=== PATIENT | female | born 1985 | race African-American/Black ===

== ENCOUNTER 2016-08-25 12:56 | Emergency (ER) | payer MEDICAID ==
[~2016-08-25 12:56] MED LIST: IBUPROFEN800 M1 PO; MACROBID 100 M100 M1 PO; NITROFURANTOIN100 MG PO; NO HOME MEDICATION XX; PRENATAL VITAM1 EAC8 PO; ZOFRAN ODT4 MG PO
[2016-08-25 14:28] LABS: BASO % 0.2 % (0-2); EOS % 0.9 % (0-7); EOSINOPHIL ABSOLUTE COUNT 0.1 tho/cmm (0.0-0.7); HCT-HEMATOCRIT 34.2 % (34.0-49.0); HGB-HEMOGLOBIN 10.4 gm/dl (12.0-15.5); IMMATURE GRANULOCYTES ABSOLUTE 0.02 tho/cmm (0-0.03); IMMATURE GRANULOCYTES PERCENT 0.2 % (0-0.3); LYMPH % 15.2 % (20-45); LYMPH ABSOLUTE COUNT 1.8 tho/cmm (0.8-4.5); MCH (MEAN CORPUSCULAR HGB) 21.3 pg (28.0-32.0); MCHC MEAN CORPUSCULAR HGB CONC 30.4 % (32.0-36.0); MCV (MEAN CELL VOLUME) 70.1 fl (82.0-96.0); MONO % 4.3 % (0-12); MONOCYTE ABSOLUTE COUNT 0.5 tho/cmm (0.0-1.2); NEUTROPHIL ABSOLUTE COUNT 9.3 tho/cmm (1.6-8.0); NEUTROPHIL-AUTOMATED 9.3 tho/cmm (1.6-8.0); NEUTROPHILS % 79.2 % (40-80); PLATELET COUNT 181 tho/cmm (150-450); RED BLOOD COUNT 4.88 mil/cmm (4.00-5.20); RED CELL DISTRIBUTION WIDTH 22.5 % (12.4-16.4); WHITE BLOOD COUNT 11.7 tho/cmm (4.0-10.0)
[2016-08-25 14:38] LABS: URINE APPEARANCE HAZY; URINE BILIRUBIN NEGATIVE (NEG); URINE BLOOD SMALL (NEG); URINE COLOR PALE YELLOW; URINE GLUCOSE (UA) NEGATIVE (NEG); URINE KETONE MODERATE (NEG); URINE LEUKOCYTE ESTERASE POSITIVE (NEG); URINE NITRITE NEGATIVE (NEG); URINE PROTEIN NEGATIVE (NEG); URINE SPECIFIC GRAVITY 1.015 (1.003-1.030)
[2016-08-25 14:56] LABS: URINE BACTERIA 1+; URINE EPITHELIAL CELLS 15-20 /[HPF] (0-10)
[2016-08-25] MEDS ORDERED: PRENATAL TABLE1 EAC3 PO (15:19)
[2016-08-25] MEDS ORDERED: MACROBID 100 M100 M1 PO (15:19)
[2017-02-10] MEDS ORDERED: NO HOME MEDICATION (02:16)
[2017-02-11] MEDS ORDERED: IBUPROFEN800 M1 PO (10:55)
[2017-02-11] MEDS ORDERED: PRENATAL-U CAPS1 CAP PO (10:56)
[2017-02-11] MEDS ORDERED: COLACE100 M1 PO (10:56)
[2017-02-11] MEDS ORDERED: NORCO 5-325 TA1 EACH PO (10:57)
== END 2016-08-25 15:32 ==
LOC: EDMED 12:56
PROVIDERS: Emergency Medicine
DX: O26.892 Other specified pregnancy related conditions, second trimester (principal); R10.2 Pelvic and perineal pain; Z3A.15 15 weeks gestation of pregnancy

== ENCOUNTER 2016-12-06 18:19 | Observation (INO) | payer MEDICAID ==
[~2016-12-06 18:19] MED LIST changes: +PRENATAL TABLE1 EAC3 PO
[2016-12-06 20:03] LABS: URINE BILIRUBIN NEGATIVE (NEG); URINE BLOOD MODERATE (NEG); URINE GLUCOSE (UA) NEGATIVE (NEG); URINE KETONE NEGATIVE (NEG); URINE LEUKOCYTE ESTERASE POSITIVE (NEG); URINE NITRITE NEGATIVE (NEG); URINE PROTEIN MODERATE (NEG)
[2016-12-06 20:04] LABS: URINE APPEARANCE CLOUDY; URINE COLOR YELLOW
[2016-12-06 20:14] LABS: URINE BACTERIA 2+; URINE EPITHELIAL CELLS 30-50 /[HPF] (0-10)
[2016-12-06 23:12] LABS: BASO % 0.2 % (0-2); EOS % 0.8 % (0-7); EOSINOPHIL ABSOLUTE COUNT 0.1 tho/cmm (0.0-0.7); HCT-HEMATOCRIT 36.6 % (34.0-49.0); IMMATURE GRANULOCYTES ABSOLUTE 0.04 tho/cmm (0-0.03); IMMATURE GRANULOCYTES PERCENT 0.3 % (0-0.3); LYMPH % 18.5 % (20-45); LYMPH ABSOLUTE COUNT 2.4 tho/cmm (0.8-4.5); MCH (MEAN CORPUSCULAR HGB) 25.7 pg (28.0-32.0); MCHC MEAN CORPUSCULAR HGB CONC 32.8 % (32.0-36.0); MCV (MEAN CELL VOLUME) 78.4 fl (82.0-96.0); MEAN PLATELET VOLUME 11.7 cmc (9.4-12.4); MONO % 7.3 % (0-12); NEUTROPHIL ABSOLUTE COUNT 9.7 tho/cmm (1.6-8.0); NEUTROPHIL-AUTOMATED 9.7 tho/cmm (1.6-8.0); NEUTROPHILS % 72.9 % (40-80); PLATELET COUNT 140 tho/cmm (150-450); RED BLOOD COUNT 4.67 mil/cmm (4.00-5.20); RED CELL DISTRIBUTION WIDTH 16.7 % (12.4-16.4); WHITE BLOOD COUNT 13.2 tho/cmm (4.0-10.0)
[2016-12-06 23:23] LABS: ALB/GLOB RATIO 0.3 (0.8-2.0); ALBUMIN 1.7 g/dl (3.5-5.0); ALKALINE PHOSPHATASE 92 U/L (33-138); ALT/SGPT 21 U/L (12-78); BLOOD UREA NITROGEN 10 mg/dl (6-24); CALCIUM 7.9 mg/dl (8.5-10.5); CARBON DIOXIDE-VENOUS 21 mmol/L (22-32); CHLORIDE 106 mmol/l (96-110); CREATININE 0.64 mg/dl (0.50-1.10); GLUCOSE 83 mg/dL (70-110); SODIUM 136 mmol/L (135-145); eGFR VALUE FOR BLACK >90 mL/Min
[2016-12-06 23:24] LABS: ANION GAP 13 mmol/L (0-20); AST/SGOT 30 U/L (10-40); BILIRUBIN,TOTAL <0.1 mg/dl (0-1.5); C-REACTIVE PROTEIN <0.3 mg/dl (0-0.9)
[2017-02-10] MEDS ORDERED: NO HOME MEDICATION (02:16)
[2017-02-11] MEDS ORDERED: IBUPROFEN800 M1 PO (10:55)
[2017-02-11] MEDS ORDERED: PRENATAL-U CAPS1 CAP PO (10:56)
[2017-02-11] MEDS ORDERED: COLACE100 M1 PO (10:56)
[2017-02-11] MEDS ORDERED: NORCO 5-325 TA1 EACH PO (10:57)
== END 2016-12-07 14:45 ==
LOC: LDR 18:19
PROVIDERS: Obstetrics & Gynecology Obstetrics; ADMIT Obstetrics & Gynecology
DX: O47.03 False labor before 37 completed weeks of gestation, third trimester (principal); Z3A.29 29 weeks gestation of pregnancy
CPT/HCPCS: G0378; J0702